=== PATIENT | female | born 1955 | race Caucasian/White ===

== ENCOUNTER → 2017-11-17 | Outpatient (CLI) | payer OTHER | LOC: M.RAD 14:01 | DX: Z12.31 Encounter for screening mammogram for malignant neoplasm of breast (principal) ==

== ENCOUNTER → 2018-01-03 | Outpatient (CLI) | payer OTHER | LOC: M.NUC 12-28 08:10 | DX: K76.9 Liver disease, unspecified (principal); M85.80 Other specified disorders of bone density and structure, unspecified site ==

== ENCOUNTER → 2018-08-15 | Outpatient (CLI) | payer OTHER | LOC: M.RAD 08-13 10:30 | DX: M81.0 Age-related osteoporosis without current pathological fracture (principal); M85.89 Other specified disorders of bone density and structure, multiple sites; Z78.0 Asymptomatic menopausal state ==

== ENCOUNTER → 2019-02-26 | Outpatient (CLI) | payer OTHER | LOC: M.ULTRA 07:18 | DX: K76.9 Liver disease, unspecified (principal); Z90.49 Acquired absence of other specified parts of digestive tract ==

== ENCOUNTER → 2019-04-29 | Outpatient (CLI) | payer OTHER | LOC: M.ULTRA 07:12 | DX: R93.5 Abnormal findings on diagnostic imaging of other abdominal regions, including retroperitoneum (principal); Z90.49 Acquired absence of other specified parts of digestive tract ==

== ENCOUNTER → 2019-08-28 | Outpatient (CLI) | payer OTHER | LOC: M.MRI 06:55 | DX: S83.241A Other tear of medial meniscus, current injury, right knee, initial encounter (principal); M25.461 Effusion, right knee; R20.2 Paresthesia of skin; R53.1 Weakness; Z74.09 Other reduced mobility; X58.XXXA Exposure to other specified factors, initial encounter; Y93.89 Activity, other specified; Y92.89 Other specified places as the place of occurrence of the external cause; Y99.8 Other external cause status ==

== ENCOUNTER → 2019-11-18 | Outpatient (CLI) | payer OTHER | LOC: M.RAD 10:57 | PROVIDERS: ATTEND Registered Nurse Diabetes Educator | DX: Z12.31 Encounter for screening mammogram for malignant neoplasm of breast (principal) ==

== ENCOUNTER → 2021-04-05 | Outpatient (CLI) | payer OTHER | LOC: M.RAD 10:23 | PROVIDERS: ATTEND Registered Nurse Diabetes Educator | DX: Z12.31 Encounter for screening mammogram for malignant neoplasm of breast (principal) ==

== ENCOUNTER → 2021-04-20 | Outpatient (CLI) | payer OTHER | LOC: M.RAD 04-12 15:01 | PROVIDERS: ATTEND Registered Nurse Diabetes Educator | DX: N63.10 Unspecified lump in the right breast, unspecified quadrant (principal); R92.8 Other abnormal and inconclusive findings on diagnostic imaging of breast ==